=== PATIENT | male | born 1955 | race Caucasian/White ===

== ENCOUNTER → 2017-03-05 | Outpatient (CLI) | payer MEDICARE, MEDICAID ==
[~2017-03-05] MED LIST: CARVEDILOL3.125 M1 PO; CLONIDINE HYDR0.1 MG PO; HYDROCODONE BIT1 T39 PO; LISINOPRIL5 MG NG; MELOXICAM7.5 MG PO; METFORMIN 500M500 M1 PO; SIMVASTATIN5 MG PO
[2017-03-05 12:14] LABS: AMPHETAMINES/METAMPHETAMINES NEGATIVE ng/mL (<1000)
== END ==
LOC: LAB 11:50
PROVIDERS: Emergency Medicine
DX: Z79.899 Other long term (current) drug therapy (principal)

== ENCOUNTER → 2017-05-10 | Outpatient (CLI) | payer MEDICARE, MEDICAID ==
[2017-05-10 15:53] LABS: BUN 18 mg/dL (7-18)
[2017-05-10 16:08] LABS: GFR (ESTIMATED) 75 ML/MIN (>60)
== END ==
LOC: LAB 14:48
PROVIDERS: Emergency Medicine
DX: E11.9 Type 2 diabetes mellitus without complications (principal)